=== PATIENT | male | born 1935 | race Caucasian/White ===

== ENCOUNTER 2017-04-21 09:59 | Outpatient (CLI) | payer MEDICARE | END 2017-04-21 11:59 | disposition home or self-care (01) | LOC: ECT 09:59 | DX: F31.81 Bipolar II disorder (principal); Z81.8 Family history of other mental and behavioral disorders ==

== ENCOUNTER 2017-05-25 06:28 | Outpatient (RCR) | payer MEDICARE ==
[~2017-05-25] VITALS: Ht 193 cm; Wt 99.8 kg
[2017-05-25] MEDS ORDERED: NS 500ML ONE (06:29)
[2017-05-25] MEDS ORDERED: Methohexital Sodium Syr 100mg/10ml IVP ONE (06:29)
[2017-05-25] MEDS ORDERED: Succinylcholine 20mg/ml 10ml vial ONE (06:29)
[2017-05-25 09:33] VITALS: BP 145/87
[2017-05-25 09:46] VITALS: BP 171/83
[2017-05-25] MEDS ORDERED: Sodium Chloride 500ML 500 ML IV ONE (09:46)
[2017-05-25 09:51] VITALS: BP 153/82
[2017-05-25 09:56] VITALS: BP 147/77
[2017-05-25 10:01] VITALS: BP 153/84
[2017-05-25 12:51] VITALS: BP 145/87
[2017-05-27] MEDS ORDERED: Succinylcholine 20mg/ml 10ml vial ONE (06:00)
[2017-05-27] MEDS ORDERED: NS 500ML ONE (06:00)
[2017-05-27] MEDS ORDERED: Methohexital Sodium Syr 100mg/10ml IVP ONE (06:00)
[2017-05-27 10:54] VITALS: BP 141/85
[2017-05-27] MEDS ORDERED: Sodium Chloride 500ML 500 ML IV ONE (11:08)
[2017-05-27 11:10] VITALS: BP 177/88
[2017-05-27 11:15] VITALS: BP 147/84
[2017-05-27 11:20] VITALS: BP 142/77
[2017-05-27 11:25] VITALS: BP 147/73
[2017-06-01] MEDS ORDERED: Succinylcholine 20mg/ml 10ml vial ONE (08:00)
[2017-06-01] MEDS ORDERED: Methohexital Sodium Syr 100mg/10ml IVP ONE (08:00)
[2017-06-01] MEDS ORDERED: NS 500ML ONE (08:00)
[2017-06-01 10:32] VITALS: BP 135/84
[2017-06-01] MEDS ORDERED: Atropine Sulfate 0.4mg/ml inj IVP PRN (10:53)
[2017-06-01] MEDS ORDERED: Sodium Chloride 500ML 500 ML IV ONE (10:53)
[2017-06-01 10:55] VITALS: BP 179/91
[2017-06-01 11:00] VITALS: BP 167/86
[2017-06-01 11:05] VITALS: BP 156/91
[2017-06-01 11:10] VITALS: BP 138/77
[2017-06-03] MEDS ORDERED: Methohexital Sodium Syr 100mg/10ml IVP ONE (08:00)
[2017-06-03] MEDS ORDERED: Succinylcholine 20mg/ml 10ml vial ONE (08:00)
[2017-06-03] MEDS ORDERED: NS 500ML ONE (08:00)
[2017-06-03 10:00] VITALS: BP 134/85
[2017-06-03] MEDS ORDERED: Sodium Chloride 500ML 500 ML IV ONE (10:18)
[2017-06-03 10:20] VITALS: BP 154/83
[2017-06-03 10:25] VITALS: BP 146/77
[2017-06-03 10:30] VITALS: BP 140/71
[2017-06-03 10:35] VITALS: BP 137/74
[2017-06-03 10:40] VITALS: BP 142/81
== END 2017-06-03 | disposition home or self-care (01) ==
LOC: ECT 06:28
DX: F31.81 Bipolar II disorder (principal)
CPT/HCPCS: 90870; J0330; J7040

== ENCOUNTER 2017-06-05 05:25 | Outpatient (RCR) | payer MEDICARE ==
[~2017-06-05] VITALS: Ht 193 cm; Wt 99.8 kg
[2017-06-05] MEDS ORDERED: Succinylcholine 20mg/ml 10ml vial ONE ×2 (05:26)
[2017-06-05] MEDS ORDERED: NS 500ML ONE ×2 (05:26)
[2017-06-05] MEDS ORDERED: Methohexital Sodium Syr 100mg/10ml IVP ONE ×2 (05:26)
[2017-06-05 09:50] VITALS: BP 136/83
[2017-06-05] MEDS ORDERED: Sodium Chloride 500ML 500 ML IV ONE (10:09)
[2017-06-05] MEDS ORDERED: Atropine Sulfate 0.4mg/ml inj IVP PRN (10:09)
[2017-06-05 10:10] VITALS: BP 198/83
[2017-06-05 10:15] VITALS: BP 175/79
[2017-06-05 10:20] VITALS: BP 142/72
[2017-06-05 10:25] VITALS: BP 136/72
[2017-06-05 10:30] VITALS: BP 133/75
[2017-06-08] MEDS ORDERED: NS 500ML ONE (07:00)
[2017-06-08] MEDS ORDERED: Succinylcholine 20mg/ml 10ml vial ONE (07:00)
[2017-06-08] MEDS ORDERED: Methohexital Sodium Syr 100mg/10ml IVP ONE (07:00)
[2017-06-08 10:50] VITALS: BP 137/87
[2017-06-08 11:03] VITALS: BP 228/118
[2017-06-08] MEDS ORDERED: Sodium Chloride 500ML 500 ML IV ONE (11:03)
[2017-06-08 11:08] VITALS: BP 203/95
[2017-06-08 11:13] VITALS: BP 172/85
[2017-06-08 11:18] VITALS: BP 154/79
[2017-06-10] MEDS ORDERED: Succinylcholine 20mg/ml 10ml vial ONE (07:00)
[2017-06-10] MEDS ORDERED: NS 500ML ONE (07:00)
[2017-06-10] MEDS ORDERED: Methohexital Sodium Syr 100mg/10ml IVP ONE (07:00)
[2017-06-10 09:39] VITALS: BP 149/86
[2017-06-10] MEDS ORDERED: Sodium Chloride 500ML 500 ML IV ONE (09:52)
[2017-06-10 09:55] VITALS: BP 225/116
[2017-06-10 10:00] VITALS: BP 178/89
[2017-06-10 10:05] VITALS: BP 147/82
[2017-06-10 10:10] VITALS: BP 150/86
[2017-06-12] MEDS ORDERED: Succinylcholine 20mg/ml 10ml vial ONE (07:00)
[2017-06-12] MEDS ORDERED: Methohexital Sodium Syr 100mg/10ml IVP ONE (07:00)
[2017-06-12] MEDS ORDERED: NS 500ML ONE (07:00)
[2017-06-12] MEDS ORDERED: Sodium Chloride 500ML 500 ML IV ONE (08:28)
[2017-06-12 09:12] VITALS: BP 146/93
[2017-06-15] MEDS ORDERED: NS 500ML ONE (08:00)
[2017-06-15] MEDS ORDERED: Succinylcholine 20mg/ml 10ml vial ONE (08:00)
[2017-06-15] MEDS ORDERED: Methohexital Sodium Syr 100mg/10ml IVP ONE (08:00)
[2017-06-15 11:55] VITALS: BP 134/85
[2017-06-15 12:00] VITALS: BP 207/93
[2017-06-15] MEDS ORDERED: Atropine Sulfate 0.4mg/ml inj IVP PRN (12:18)
[2017-06-15] MEDS ORDERED: Sodium Chloride 500ML 500 ML IV ONE (12:18)
[2017-06-15 12:20] VITALS: BP 207/93
[2017-06-15 12:25] VITALS: BP 193/91
[2017-06-15 12:30] VITALS: BP_SYST 158; BP_SYST 193; BP_DIAS 78; BP_DIAS 91
[2017-06-15 12:35] VITALS: BP 151/84
[2017-06-17] MEDS ORDERED: Succinylcholine 20mg/ml 10ml vial ONE (08:00)
[2017-06-17] MEDS ORDERED: Methohexital Sodium Syr 100mg/10ml IVP ONE (08:00)
[2017-06-17] MEDS ORDERED: NS 500ML ONE (08:00)
[2017-06-17] MEDS ORDERED: Sodium Chloride 500ML 500 ML IV ONE (10:23)
[2017-06-17 10:25] VITALS: BP 177/91
[2017-06-17 10:30] VITALS: BP 158/84
[2017-06-17 10:35] VITALS: BP 148/81
[2017-06-17 10:40] VITALS: BP 146/85
[2017-06-19] MEDS ORDERED: Methohexital Sodium Syr 100mg/10ml IVP ONE (07:00)
[2017-06-19] MEDS ORDERED: NS 500ML ONE (07:00)
[2017-06-19] MEDS ORDERED: Succinylcholine 20mg/ml 10ml vial ONE (07:00)
[2017-06-19] MEDS ORDERED: Sodium Chloride 500ML 500 ML IV ONE (10:48)
[2017-06-19 10:50] VITALS: BP 198/105
[2017-06-19 10:55] VITALS: BP 164/92
[2017-06-19 11:00] VITALS: BP 166/94
[2017-06-19 11:05] VITALS: BP 163/96
[2017-06-24] MEDS ORDERED: Succinylcholine 20mg/ml 10ml vial ONE (06:00)
[2017-06-24] MEDS ORDERED: Methohexital Sodium Syr 100mg/10ml IVP ONE (06:00)
[2017-06-24] MEDS ORDERED: NS 500ML ONE (06:00)
[2017-06-24 09:53] VITALS: BP 161/91
[2017-06-24] MEDS ORDERED: Sodium Chloride 500ML 500 ML IV ONE (10:12)
[2017-06-24 10:15] VITALS: BP 241/134
[2017-06-24 10:20] VITALS: BP 202/94
[2017-06-24 10:25] VITALS: BP 201/96
[2017-06-24 10:30] VITALS: BP 190/92
[2017-06-29] MEDS ORDERED: Succinylcholine 20mg/ml 10ml vial ONE (07:00)
[2017-06-29] MEDS ORDERED: NS 500ML ONE (07:00)
[2017-06-29] MEDS ORDERED: Methohexital Sodium Syr 100mg/10ml IVP ONE (07:00)
[2017-06-29 10:45] VITALS: BP 147/91
[2017-06-29] MEDS ORDERED: Atropine Sulfate 0.4mg/ml inj IVP PRN (11:04)
[2017-06-29] MEDS ORDERED: Sodium Chloride 500ML 500 ML IV ONE (11:04)
[2017-06-29 11:05] VITALS: BP 198/112
[2017-06-29 11:10] VITALS: BP 168/100
[2017-06-29 11:15] VITALS: BP 166/96
[2017-06-29 11:20] VITALS: BP 166/96
== END 2017-07-04 | disposition home or self-care (01) ==
LOC: ECT 05:25
DX: F31.81 Bipolar II disorder (principal)
CPT/HCPCS: 90870; J0330; J3360; J7040

== ENCOUNTER 2017-12-25 04:50 | Outpatient (RCR) | payer MEDICARE ==
[~2017-12-25] VITALS: Ht 193 cm; Wt 99.8 kg
[2017-12-25] MEDS ORDERED: NS 500ML ONE (04:51)
[2017-12-25] MEDS ORDERED: Succinylcholine 20mg/ml 10ml vial ONE (04:51)
[2017-12-25] MEDS ORDERED: Methohexital Sodium Syr 100mg/10ml IVP ONE (04:51)
[2017-12-25 09:43] VITALS: BP 193/90
[2017-12-25] MEDS ORDERED: Sodium Chloride 500ML 500 ML IV ONE (10:04)
[2017-12-25 10:05] VITALS: BP 152/52
[2017-12-25 10:10] VITALS: BP 147/79
[2017-12-25 10:15] VITALS: BP 147/79
[2017-12-25 10:20] VITALS: BP 160/86
[2017-12-25 12:42] VITALS: BP 155/90
[2017-12-26] MEDS ORDERED: Sodium Chloride 500ML 500 ML IV ONE (10:04)
[2017-12-30] MEDS ORDERED: Propofol 1,000mg/ 100ml btl IV ONE (07:00)
[2017-12-30] MEDS ORDERED: NS 500ML ONE (07:00)
[2017-12-30] MEDS ORDERED: Propofol 1,000mg/ 100ml btl ONE (07:00)
[2017-12-30 10:12] VITALS: BP 163/88
[2017-12-30] MEDS ORDERED: Midazolam 2mg/2ml Inj IVP PRN (10:30)
[2017-12-30] MEDS ORDERED: Sodium Chloride 500ML 500 ML IV ONE (10:30)
[2017-12-30 10:35] VITALS: BP 176/89
[2017-12-30 10:40] VITALS: BP 146/78
[2017-12-30 10:45] VITALS: BP 136/88
[2017-12-30 10:50] VITALS: BP 142/82
[2018-01-01] MEDS ORDERED: Propofol 200mg/20ml IV ONE (06:00)
[2018-01-01] MEDS ORDERED: NS 500ML ONE (06:00)
[2018-01-01] MEDS ORDERED: Succinylcholine 20mg/ml 10ml vial ONE (06:00)
[2018-01-01 09:16] VITALS: BP 144/110
[2018-01-01] MEDS ORDERED: Midazolam 2mg/2ml Inj IVP PRN (09:31)
[2018-01-01] MEDS ORDERED: Sodium Chloride 500ML 500 ML IV ONE (09:31)
[2018-01-01 09:35] VITALS: BP 183/89
[2018-01-01 09:40] VITALS: BP 152/80
[2018-01-01 09:45] VITALS: BP 147/81
[2018-01-01 09:50] VITALS: BP 147/78
== END 2018-01-03 | disposition home or self-care (01) ==
LOC: ECT 04:50
DX: F31.81 Bipolar II disorder (principal)
CPT/HCPCS: 90870; J0330; J2704; J3360; J7040

== ENCOUNTER 2018-01-04 07:03 | Outpatient (RCR) | payer MEDICARE ==
[~2018-01-04] VITALS: Ht 193 cm; Wt 99.8 kg
[2018-01-04] MEDS ORDERED: NS 500ML ONE ×5 (07:04)
[2018-01-04] MEDS ORDERED: Succinylcholine 20mg/ml 10ml vial ONE ×5 (07:04)
[2018-01-04] MEDS ORDERED: Propofol 200mg/20ml IV ONE ×5 (07:04)
[2018-01-04 10:21] VITALS: BP 126/76
[2018-01-04] MEDS ORDERED: Sodium Chloride 500ML 500 ML IV ONE (10:37)
[2018-01-04] MEDS ORDERED: Midazolam 2mg/2ml Inj IVP PRN (10:37)
[2018-01-04 10:40] VITALS: BP 131/72
[2018-01-04 10:45] VITALS: BP 127/69
[2018-01-04 10:50] VITALS: BP 131/70
[2018-01-04 10:55] VITALS: BP 133/75
[2018-01-06 10:11] VITALS: BP 149/88
[2018-01-06] MEDS ORDERED: Midazolam 2mg/2ml Inj IVP PRN (10:28)
[2018-01-06] MEDS ORDERED: Sodium Chloride 500ML 500 ML IV ONE (10:28)
[2018-01-06 10:30] VITALS: BP 190/98
[2018-01-06 10:35] VITALS: BP 157/97
[2018-01-06 10:40] VITALS: BP 156/91
[2018-01-06 10:45] VITALS: BP 151/80
[2018-01-08 09:41] VITALS: BP 148/95
[2018-01-08] MEDS ORDERED: Sodium Chloride 500ML 500 ML IV ONE (09:55)
[2018-01-08] MEDS ORDERED: Midazolam 2mg/2ml Inj IVP PRN (09:55)
[2018-01-08 10:00] VITALS: BP 179/88
[2018-01-08 10:05] VITALS: BP 161/86
[2018-01-08 10:10] VITALS: BP 150/81
[2018-01-08 10:15] VITALS: BP 136/72
[2018-01-11 09:40] VITALS: BP 140/86
[2018-01-11] MEDS ORDERED: Sodium Chloride 500ML 500 ML IV ONE (10:01)
[2018-01-11 10:05] VITALS: BP 182/98
[2018-01-11 10:10] VITALS: BP 182/98
[2018-01-11 10:15] VITALS: BP 142/72
[2018-01-11 10:20] VITALS: BP 140/76
[2018-01-13 10:49] VITALS: BP 148/89
[2018-01-13 11:05] VITALS: BP 164/85
[2018-01-13] MEDS ORDERED: Sodium Chloride 500ML 500 ML IV ONE (11:05)
[2018-01-13 11:10] VITALS: BP 157/86
[2018-01-13 11:15] VITALS: BP 152/82
[2018-01-13 11:20] VITALS: BP 145/77
[2018-01-15 09:50] VITALS: BP 142/81
[2018-01-15] MEDS ORDERED: Sodium Chloride 500ML 500 ML IV ONE (10:14)
[2018-01-15 10:15] VITALS: BP 187/91
[2018-01-15 10:20] VITALS: BP 154/73
[2018-01-15 10:25] VITALS: BP 160/81
[2018-01-15 10:30] VITALS: BP 158/79
[2018-01-18] MEDS ORDERED: NS 500ML ONE (06:00)
[2018-01-18] MEDS ORDERED: Propofol 200mg/20ml IV ONE (06:00)
[2018-01-18] MEDS ORDERED: Succinylcholine 20mg/ml 10ml vial ONE (06:00)
[2018-01-18 09:38] VITALS: BP 139/90
[2018-01-18] MEDS ORDERED: Midazolam 2mg/2ml Inj IVP PRN (09:54)
[2018-01-18] MEDS ORDERED: Sodium Chloride 500ML 500 ML IV ONE (09:54)
[2018-01-18 09:55] VITALS: BP 144/74
[2018-01-18 10:00] VITALS: BP 134/76
[2018-01-18 10:05] VITALS: BP 145/76
[2018-01-18 10:10] VITALS: BP 145/85
[2018-01-20] MEDS ORDERED: NS 500ML ONE (06:00)
[2018-01-20] MEDS ORDERED: Propofol 200mg/20ml IV ONE (06:00)
[2018-01-20] MEDS ORDERED: Succinylcholine 20mg/ml 10ml vial ONE (06:00)
[2018-01-20 10:22] VITALS: BP 145/95
[2018-01-20] MEDS ORDERED: Sodium Chloride 500ML 500 ML IV ONE (10:39)
[2018-01-20] MEDS ORDERED: Midazolam 2mg/2ml Inj IVP PRN (10:39)
[2018-01-20 10:40] VITALS: BP 184/86
[2018-01-20 10:45] VITALS: BP 156/96
[2018-01-20 10:50] VITALS: BP 154/81
[2018-01-20 10:55] VITALS: BP 151/76
[2018-01-22] MEDS ORDERED: Propofol 200mg/20ml IV ONE (06:00)
[2018-01-22] MEDS ORDERED: Succinylcholine 20mg/ml 10ml vial ONE (06:00)
[2018-01-22] MEDS ORDERED: NS 500ML ONE (06:00)
[2018-01-22 08:25] VITALS: BP 130/92
[2018-01-22 08:40] VITALS: BP 153/92
[2018-01-22] MEDS ORDERED: Midazolam 2mg/2ml Inj IVP PRN (08:40)
[2018-01-22] MEDS ORDERED: Sodium Chloride 500ML 500 ML IV ONE (08:40)
[2018-01-22 08:45] VITALS: BP 152/75
[2018-01-22 08:50] VITALS: BP 142/75
[2018-01-22 08:55] VITALS: BP 139/77
[2018-01-27] MEDS ORDERED: Propofol 200mg/20ml IV ONE (08:00)
[2018-01-27] MEDS ORDERED: Succinylcholine 20mg/ml 10ml vial ONE (08:00)
[2018-01-27] MEDS ORDERED: NS 500ML ONE (08:00)
[2018-01-27] MEDS ORDERED: Sodium Chloride 500ML 500 ML IV ONE (09:57)
[2018-01-27 10:00] VITALS: BP 160/81
[2018-01-27 10:05] VITALS: BP 153/89
[2018-01-27 10:10] VITALS: BP 145/82
[2018-01-27 10:15] VITALS: BP 154/80
[2018-02-01] MEDS ORDERED: NS 500ML ONE (07:00)
[2018-02-01] MEDS ORDERED: Succinylcholine 20mg/ml 10ml vial ONE (07:00)
[2018-02-01] MEDS ORDERED: Propofol 200mg/20ml IV ONE (07:00)
[2018-02-01 10:03] VITALS: BP 133/87
[2018-02-01] MEDS ORDERED: Atropine Sulfate 0.4mg/ml inj IVP PRN (10:23)
[2018-02-01] MEDS ORDERED: Sodium Chloride 500ML 500 ML IV ONE (10:23)
[2018-02-01 10:25] VITALS: BP 170/99
[2018-02-01 10:30] VITALS: BP 150/81
[2018-02-01 10:35] VITALS: BP 148/78
[2018-02-01 10:40] VITALS: BP 144/74
== END 2018-02-03 | disposition home or self-care (01) ==
LOC: ECT 07:03
DX: F31.81 Bipolar II disorder (principal)
CPT/HCPCS: 90870; J0330; J2704; J7040